=== PATIENT | male | born 1960 | race Caucasian/White ===

== ENCOUNTER 2017-11-28 14:32 | Emergency (ER) | payer BC ==
--- NOTE | 2017-11-28 15:27 | EDPHY ---
H & P Time Seen by Provider: 11/28/17 14:57 HPI/ROS: CHIEF COMPLAINT: Sternal pain HISTORY OF PRESENT ILLNESS: Patient is a 57-year-old male who presents emergency department after striking his sternum on a bench. The patient was at [employer] watching a concert. He misstepped and fell forward striking his chest on the bench. He describes sternal pain immediately. It is worse with movement and deep breath. He ultimately went home from the concert due to the discomfort. His pain is persisted so he came to the emergency department for evaluation. He has no cardiac history. He states that he sustained a mechanical fall because of the step. He had no preceding symptoms. He denies striking his head or sustaining other injury. REVIEW OF SYSTEMS: My complete review of systems is negative except as mentioned in the HPI. Past Medical/Surgical History: Includes diverticulitis Past surgical history: Includes colectomy, ankle surgery, nephrectomy, hernia repair Social history: Patient does not smoke Smoking Status: Former smoker Physical Exam: Vitals noted GENERAL: Well-appearing, in no acute distress, alert. HEENT: Eyes normal to inspection, normal pharynx, no signs of dehydration. NECK: No thyromegaly, no lymphadenopathy, supple. RESPIRATORY: Clear to auscultation bilaterally, no rales, rhonchi or wheezing. Chest wall: Patient has sternal tenderness to palpation. No crepitus or deformity. No bruising. The patient has no rib cage tenderness to palpation. CVS: Regular rate and rhythm, no rubs, murmurs, or gallops. ABDOMEN: Soft, nontender, nondistended, no organomegaly. BACK: Normal to inspection, no CVA tenderness. No spinal tenderness SKIN: Normal color, no rash, warm, dry. No pallor. EXTREMITIES: No pedal edema, no joint swelling. NEURO/PSYCH: Alert and oriented x3, normal mood and affect, no focal deficits. Constitutional: Initial Vital Signs Temperature (C) 36.6 C 11/28/17 14:36 Heart Rate 108 H 11/28/17 14:36 Respiratory Rate 22 H 11/28/17 14:36 Blood Pressure 138/104 H 11/28/17 14:36 O2 Sat (%) 95 11/28/17 14:36 O2 Delivery Mode Room Air Allergies/Adverse Reactions: No Known Allergies Allergy (Unverified 07/25/15 17:43) Home Medications: Medication Instructions Recorded oxyCODONE/APAP 5/325 [Percocet 1 - 2 tab PO Q4 PRN #30 tab 10/17/15 5/325 (*)] oxyCODONE/APAP 5/325 [Percocet 1 - 2 tab PO Q4PRN PRN #15 tab 11/28/17 5/325 (*)] Medical Decision Making - Diagnostics Imaging Results: Imaging Impressions Sternum X-Ray 11/28/17 15:29 Impression: Negative. No acute sternal fracture. Chest X-Ray 11/28/17 15:30 Impression: Negative. No pneumothorax or displaced fracture. ED Course/Re-evaluation: In the emergency department discussed possible etiologies with the patient. I answered all his questions. An x-ray of his chest and sternum was ordered. The patient did not want pain medication initially. He did consent to ibuprofen. Sternal x-ray/chest x-ray: Please refer the dictated report. No acute disease noted. I discussed the results with the patient. I answered all his questions. He was given ibuprofen. He is given a prescription for Percocet. He is given warnings prior to leaving. He will return with worsening symptoms. Differential Diagnosis: My differential includes but is not limited to chest wall contusion, sternal contusion, sternal fracture, pneumothorax, hemothorax, vessel disruption, dissection, ACS - Data Points Medications Given: Discontinued Medications Ibuprofen (Motrin) 600 mg PO EDNOW ONE Stop: 11/28/17 16:19 Last Admin: 11/28/17 16:21 Dose: 600 mg Departure - Departure Disposition: Home, Routine, Self-Care Clinical Impression: Sternal contusion Qualifiers: Encounter type: initial encounter Qualified Code(s): S20.20XA - Contusion of thorax, unspecified, initial encounter Condition: Good Instructions: Chest Wall Pain (ED) Additional Instructions: Return with increasing pain, shortness of breath, fever or any other concerns. Referrals: DASHA EDUARDO [Other] - 5-7 days, if not improved Prescriptions: oxyCODONE/APAP 5/325 [Percocet 5/325 (*)] 1 - 2 tab PO Q4PRN PRN #15 tab PRN Reason: For Moderate To Severe Pain
[2017-11-28] MEDS ORDERED: IBUPROFEN 600 MG TAB PO ONE (16:18)
[2017-11-28 16:23] VITALS: BP 139/103
== END 2017-11-28 16:35 | disposition home or self-care (01) ==
DX: S20.20XA Contusion of thorax, unspecified, initial encounter (principal); W10.8XXA Fall (on) (from) other stairs and steps, initial encounter; Y93.82 Activity, spectator at an event; Y92.252 Music hall as the place of occurrence of the external cause